=== PATIENT | male | born 1935 | race African-American/Black ===

== ENCOUNTER 2017-01-01 12:08 | Emergency (ER) | payer MEDICARE, MEDICAID ==
[~2017-01-01] VITALS: Ht 177.8 cm; Wt 78.0 kg
[~2017-01-01 12:08] MED LIST: AMLO5TAB4 PO; ASPI-1159 PO; CRANBERRY PO; DOCU-138 PO; FINA5TAB11 PO; GEMF600T3 PO; GLIP5TAB12 PO; HYDR-4134 PO; MULT-1146 PO; PANT40TA4 PO; PARO10TA87 PO
[2017-01-01 16:32] VITALS: BP 134/72
== END 2017-01-01 17:14 ==
LOC: ER 14:00
DX: S22.42XA Multiple fractures of ribs, left side, initial encounter for closed fracture (principal); J90 Pleural effusion, not elsewhere classified; F41.9 Anxiety disorder, unspecified; R51 Headache; E11.22 Type 2 diabetes mellitus with diabetic chronic kidney disease; I12.9 Hypertensive chronic kidney disease with stage 1 through stage 4 chronic kidney disease, or unspecified chronic kidney disease; N18.9 Chronic kidney disease, unspecified; J44.9 Chronic obstructive pulmonary disease, unspecified; J84.10 Pulmonary fibrosis, unspecified; Z95.0 Presence of cardiac pacemaker; Z87.828 Personal history of other (healed) physical injury and trauma; Z79.82 Long term (current) use of aspirin; W06.XXXA Fall from bed, initial encounter; Y93.89 Activity, other specified; Y92.013 Bedroom of single-family (private) house as the place of occurrence of the external cause
CPT/HCPCS: 70450; 71010; 71250; 99284

== ENCOUNTER 2017-08-14 12:53 | Emergency (ER) | payer MEDICARE, MEDICAID ==
[~2017-08-14] VITALS: Ht 175.3 cm; Wt 75.0 kg
[2017-08-14] MEDS ORDERED: ACETAMINOPHEN 500MG TABLET PO STA (14:01)
[2017-08-14] MEDS ORDERED: SODIUM CHLORIDE 0.9% 1,000 ML IV ONE (14:01)
[2017-08-14 14:36] LABS: BASOPHILS % 0.7 % (0.0-2.0); EOSINOPHILS % 1.4 % (0.0-5.0); HEMATOCRIT. 36.9 % (42.0-52.0); HEMOGLOBIN. 11.9 g/dL (14.0-18.0); LYMPHOCYTES % 18.9 % (20.0-50.0); MEAN CORPUSCULAR HEMOGLOBIN 21.7 pg (28.0-32.0); MEAN CORPUSCULAR VOLUME 67.2 fL (80.0-94.0); MEAN PLATELET VOLUME 8.9 fl (7.4-10.4); MONOCYTES % 7.9 % (2.0-8.0); NEUTROPHILS % 71.1 % (40.0-76.0); PLATELET 178 x1000/uL (130-400); RED BLOOD CELL COUNT 5.49 mill/uL (4.7-6.1); RED CELL DISTRIBUTION WIDTH 16.4 % (11.6-14.6)
[2017-08-14 15:24] LABS: PLATELET ESTIMATE NORMAL
[2017-08-14 15:55] LABS: PROTHROMBIN TIME 10.5 sec (9.4-11.6)
[2017-08-14 17:02] VITALS: BP 173/81
== END 2017-08-14 18:07 | disposition home or self-care (01) ==
LOC: ER 13:14
DX: S09.90XA Unspecified injury of head, initial encounter (principal); W01.0XXA Fall on same level from slipping, tripping and stumbling without subsequent striking against object, initial encounter; Y93.E1 Activity, personal bathing and showering; F41.9 Anxiety disorder, unspecified; E11.22 Type 2 diabetes mellitus with diabetic chronic kidney disease; R51 Headache; I12.9 Hypertensive chronic kidney disease with stage 1 through stage 4 chronic kidney disease, or unspecified chronic kidney disease; N18.9 Chronic kidney disease, unspecified; Z95.0 Presence of cardiac pacemaker; Z79.02 Long term (current) use of antithrombotics/antiplatelets; Z79.82 Long term (current) use of aspirin; Z79.84 Long term (current) use of oral hypoglycemic drugs
CPT/HCPCS: 36415; 70450; 80048; 85025; 85610; 85730; 86850; 86900; 86901; 93005; 96360; 96361; 99285; J7030

== ENCOUNTER 2019-11-02 12:24 | Inpatient (IN) | payer MEDICARE, MEDICAID ==
[~2019-11-02] VITALS: Ht 182.9 cm; Wt 73.5 kg
[~2019-11-02 12:24] MED LIST changes: -ASPI-1159 PO; +ASPI-1497 PO; +CLOP75TA33 PO; -GEMF600T3 PO; +GEMF600T5 PO; +HYDR-4135 PO; +INSU100I19 SQ; +ISOS20TA8 PO; +MEMA5TAB42 PO; +METO-396 PO; +NIFE-32 PO; +OMEP40CA12 MT
[2019-11-02] MEDS ORDERED: ONDANSETRON HCL 4MG/2ML INJ IV STA (12:54)
[2019-11-02] MEDS ORDERED: MORPHINE SULFATE 4 MG/ML CPJ (NOT FOR IM USE) IV STA (12:54)
[2019-11-02 13:34] LABS: BASOPHILS % 0.4 % (0.0-2.0); EOSINOPHILS % 0.3 % (0.0-5.0); HEMOGLOBIN. 12.8 g/dL (14.0-18.0); MEAN CORPUSCULAR HEMOGLOBIN 21.1 pg (28.0-32.0); MEAN CORPUSCULAR VOLUME 67.5 fL (80.0-94.0); MEAN PLATELET VOLUME 9.6 fl (7.4-10.4); NEUTROPHILS % 74.3 % (40.0-76.0); PLATELET 251 x1000/uL (130-400); RED BLOOD CELL COUNT 6.07 mill/uL (4.7-6.1); RED CELL DISTRIBUTION WIDTH 18.5 % (11.6-14.6)
[2019-11-02 13:40] LABS: CHLORIDE 103 mEq/L (98-107)
[2019-11-02 13:43] LABS: PROTHROMBIN TIME 10.5 sec (9.6-11.0)
[2019-11-02 14:11] LABS: PLATELET ESTIMATE NORMAL
[2019-11-02] MEDS ORDERED: PANTOPRAZOLE SODIUM 40 MG/VIAL IV ONE (15:30)
[2019-11-02] MEDS ORDERED: SODIUM CHLORIDE 0.9% 250 ML IV ONE (15:45)
[2019-11-02] MEDS ORDERED: CLONIDINE 0.1MG TABLET PO PRN (15:45)
[2019-11-02] MEDS ORDERED: INSULIN REGULAR (HUMULIN R) 300UNITS/3ML SUBCUT ONE (15:45)
[2019-11-02] MEDS ORDERED: ONDANSETRON HCL 4MG/2ML INJ IV PRN (15:45)
[2019-11-02] MEDS ORDERED: CEFTRIAXONE 1 G PREMIX 50 ML IV SCH (16:00)
[2019-11-02] MEDS: PANTOPRAZOLE SODIUM 40 MG/VIAL IV SCH (16:00)
[2019-11-02] MEDS: SODIUM CHLORIDE 0.9% 1,000 ML IV SCH ×2 (16:01→22:27)
[2019-11-02 16:39] LABS: TOTAL IRON BINDING CAPACITY 286 ug/dL (250-450)
[2019-11-02 19:09] LABS: CLARITY URINE CLEAR (CLEAR); COLOR URINE YELLOW (YELLOW); KETONES URINE NEGATIVE (NEGATIVE); LEUKOCYTE ESTERASE URINE TRACE (NEGATIVE); NITRITE URINE NEGATIVE (NEGATIVE); OCCULT BLOOD URINE NEGATIVE (NEGATIVE); PH URINE 6.5 (4.5-8.0); PROTEIN URINE 2+ (NEGATIVE); SPECIFIC GRAVITY URINE 1.023 (1.005-1.030)
[2019-11-02 21:45] VITALS: BP 138/79
[2019-11-02 22:00] VITALS: BP 138/79
[2019-11-02] MEDS: INSULIN GLARGINE UD 100 UNITS/ML SYR SUBCUT SCH (22:00)
[2019-11-02] MEDS ORDERED: DEXTROSE 50% WATER 50ML SYRINGE IV PRN (22:15)
[2019-11-02] MEDS: MEMANTINE HCL 5MG TABLET PEG SCH (22:26)
[2019-11-02] MEDS: METOPROLOL TARTRATE 25MG TABLET PEG SCH (22:38)
[2019-11-02 23:18] LABS: HEMATOCRIT 39.2 % (42.0-52.0); HEMOGLOBIN 11.9 g/dL (14.0-18.0); MEAN CORPUSCULAR HEMOGLOBIN 20.8 pg (28.0-32.0); MEAN CORPUSCULAR VOLUME 68.1 fL (80.0-94.0); PLATELET 225 x1000/uL (130-400); RED BLOOD CELL COUNT 5.75 mill/uL (4.7-6.1); RED CELL DISTRIBUTION WIDTH 18.3 % (11.6-14.6)
[2019-11-03] VITALS: BP_SYST 130; BP_SYST 136; BP_DIAS 67; BP_DIAS 75
[2019-11-03] MEDS ORDERED: DOCU-138 GT (00:21)
[2019-11-03] MEDS ORDERED: AMLO10TA80 GT (00:21)
[2019-11-03] MEDS ORDERED: HYDR-4135 GT (00:21)
[2019-11-03] MEDS ORDERED: METO-293 GT (00:21)
[2019-11-03] MEDS ORDERED: IPRA3AMP31 NEB (00:21)
[2019-11-03] MEDS ORDERED: INSU100I28 SQ (00:21)
[2019-11-03] MEDS ORDERED: TOPUD GT (00:21)
[2019-11-03 04:00] VITALS: BP 126/66
[2019-11-03 06:55] LABS: BASOPHILS % 0.8 % (0.0-2.0); EOSINOPHILS % 4.4 % (0.0-5.0); HEMATOCRIT. 38.1 % (42.0-52.0); HEMOGLOBIN. 11.6 g/dL (14.0-18.0); LYMPHOCYTES % 23.8 % (20.0-50.0); MEAN CORPUSCULAR HEMOGLOBIN 20.6 pg (28.0-32.0); MEAN CORPUSCULAR VOLUME 67.7 fL (80.0-94.0); PLATELET 214 x1000/uL (130-400); RED BLOOD CELL COUNT 5.63 mill/uL (4.7-6.1)
[2019-11-03] MEDS: INSULIN LISPRO 100 UNITS/ML SUBCUT SCH ×4 (07:35→21:00)
[2019-11-03] MEDS: BLOOD SUGAR DIAGNOSTIC STRIP TEST SCH ×4 (07:35→21:00)
[2019-11-03 08:00] VITALS: BP 127/61
[2019-11-03] MEDS: AMLODIPINE 5MG TABLET PEG SCH (10:02)
[2019-11-03] MEDS: PANTOPRAZOLE SODIUM 40 MG/VIAL IV SCH ×3 (10:02→22:06)
[2019-11-03] MEDS: CEFTRIAXONE 1,000 MG in DEXTROSE 5% WATER 50 ML IV SCH (10:02)
[2019-11-03] MEDS: FINASTERIDE 5MG TABLET PEG SCH (10:02)
[2019-11-03] MEDS: METOPROLOL TARTRATE 25MG TABLET PEG SCH ×2 (10:03→22:05)
[2019-11-03] MEDS ORDERED: NA PHOS,M-B/NA PHOS,DI-BA ENEMA 118ML PR PRN (11:00)
[2019-11-03] MEDS ORDERED: SORBITOL 70% SOLN 30ML GT NR (11:00)
[2019-11-03] MEDS: SUCRALFATE 1 G/10 ML UDC GT SCH ×2 (11:12→17:52)
[2019-11-03 12:00] VITALS: BP 141/62
[2019-11-03 16:00] VITALS: BP 141/87
[2019-11-03 20:00] VITALS: BP 106/76
[2019-11-03] MEDS: MEMANTINE HCL 5MG TABLET PEG SCH (22:05)
[2019-11-03] MEDS: INSULIN GLARGINE UD 100 UNITS/ML SYR SUBCUT SCH (22:08)
[2019-11-04] MEDS: SUCRALFATE 1 G/10 ML UDC GT SCH ×5 (00:38→23:08)
[2019-11-04] MEDS: SODIUM CHLORIDE 0.9% 1,000 ML IV SCH ×3 (01:01→23:04)
[2019-11-04 04:00] VITALS: BP 147/69
[2019-11-04] MEDS: BLOOD SUGAR DIAGNOSTIC STRIP TEST SCH ×4 (07:15→21:32)
[2019-11-04] MEDS: INSULIN LISPRO 100 UNITS/ML SUBCUT SCH ×4 (07:50→21:00)
[2019-11-04 08:00] VITALS: BP 153/68
[2019-11-04] MEDS: ACETAMINOPHEN 650MG/20.3ML UDC GT PRN (08:58)
[2019-11-04] MEDS: METOPROLOL TARTRATE 25MG TABLET PEG SCH ×2 (08:59→21:31)
[2019-11-04] MEDS: CEFTRIAXONE 1,000 MG in DEXTROSE 5% WATER 50 ML IV SCH (08:59)
[2019-11-04] MEDS: FINASTERIDE 5MG TABLET PEG SCH (08:59)
[2019-11-04] MEDS: AMLODIPINE 5MG TABLET PEG SCH (08:59)
[2019-11-04] MEDS: PANTOPRAZOLE SODIUM 40 MG/VIAL IV SCH ×2 (08:59→21:31)
[2019-11-04 12:00] VITALS: BP 140/80
[2019-11-04 15:42] LABS: BASOPHILS % 1.1 % (0.0-2.0); EOSINOPHILS % 6.1 % (0.0-5.0); HEMATOCRIT. 35.4 % (42.0-52.0); HEMOGLOBIN. 10.8 g/dL (14.0-18.0); LYMPHOCYTES % 27.5 % (20.0-50.0); MEAN CORPUSCULAR HEMOGLOBIN 20.5 pg (28.0-32.0); MEAN CORPUSCULAR VOLUME 67.5 fL (80.0-94.0); MONOCYTES % 10.4 % (2.0-8.0); NEUTROPHILS % 54.9 % (40.0-76.0); PLATELET 234 x1000/uL (130-400); RED BLOOD CELL COUNT 5.25 mill/uL (4.7-6.1); RED CELL DISTRIBUTION WIDTH 18.1 % (11.6-14.6)
[2019-11-04 16:00] VITALS: BP 141/87
[2019-11-04 16:16] LABS: PLATELET ESTIMATE NORMAL
[2019-11-04 20:59] VITALS: BP 173/79
[2019-11-04] MEDS: MEMANTINE HCL 5MG TABLET PEG SCH (21:31)
[2019-11-04] MEDS: INSULIN GLARGINE UD 100 UNITS/ML SYR SUBCUT SCH (23:30)
[2019-11-05] MEDS: SUCRALFATE 1 G/10 ML UDC GT SCH ×3 (05:18→18:06)
[2019-11-05] MEDS: BLOOD SUGAR DIAGNOSTIC STRIP TEST SCH ×4 (06:41→21:25)
[2019-11-05] MEDS: INSULIN LISPRO 100 UNITS/ML SUBCUT SCH ×4 (06:41→21:00)
[2019-11-05 08:00] VITALS: BP 158/68
[2019-11-05] MEDS: CEFTRIAXONE 1,000 MG in DEXTROSE 5% WATER 50 ML IV SCH (10:05)
[2019-11-05] MEDS: PANTOPRAZOLE SODIUM 40 MG/VIAL IV SCH ×2 (10:05→21:00)
[2019-11-05] MEDS: FINASTERIDE 5MG TABLET PEG SCH (10:06)
[2019-11-05] MEDS: ACETAMINOPHEN 650MG/20.3ML UDC GT PRN (10:06)
[2019-11-05] MEDS: METOPROLOL TARTRATE 25MG TABLET PEG SCH ×2 (10:06→21:26)
[2019-11-05] MEDS: AMLODIPINE 5MG TABLET PEG SCH (10:06)
[2019-11-05 12:00] VITALS: BP 159/69
[2019-11-05 12:34] LABS: EOSINOPHILS % 2.7 % (0.0-5.0); HEMATOCRIT. 34.8 % (42.0-52.0); HEMOGLOBIN. 10.9 g/dL (14.0-18.0); LYMPHOCYTES % 15.6 % (20.0-50.0); MEAN CORPUSCULAR HEMOGLOBIN 21.1 pg (28.0-32.0); MEAN CORPUSCULAR VOLUME 67.3 fL (80.0-94.0); MEAN PLATELET VOLUME 9.2 fl (7.4-10.4); MONOCYTES % 9.1 % (2.0-8.0); NEUTROPHILS % 71.6 % (40.0-76.0); PLATELET 241 x1000/uL (130-400); RED BLOOD CELL COUNT 5.17 mill/uL (4.7-6.1)
[2019-11-05 12:42] LABS: CHLORIDE 111 mEq/L (98-107)
[2019-11-05 20:00] VITALS: BP 143/69
[2019-11-05 20:09] VITALS: BP 143/69
[2019-11-05] MEDS: MEMANTINE HCL 5MG TABLET PEG SCH (21:25)
[2019-11-05] MEDS: INSULIN GLARGINE UD 100 UNITS/ML SYR SUBCUT SCH (21:36)
== END 2019-11-05 22:17 | DRG 378 ==
LOC: ER 12:24 → 7WST 15:41 → EDBEDREQ 15:50 → EDBEDREQTM 15:50 → ENRESERV 16:58 → CANRESERV 16:58 → ENRESERV 19:37 → 6WST 21:43
PROVIDERS: ADMIT Internal Medicine Nephrology; ATTEND Internal Medicine Nephrology
DX: K26.4 Chronic or unspecified duodenal ulcer with hemorrhage (principal); E46 Unspecified protein-calorie malnutrition; E87.1 Hypo-osmolality and hyponatremia; N17.9 Acute kidney failure, unspecified; K29.81 Duodenitis with bleeding; K29.71 Gastritis, unspecified, with bleeding; E11.22 Type 2 diabetes mellitus with diabetic chronic kidney disease; R13.12 Dysphagia, oropharyngeal phase; K56.41 Fecal impaction; D72.829 Elevated white blood cell count, unspecified; D50.9 Iron deficiency anemia, unspecified; E11.65 Type 2 diabetes mellitus with hyperglycemia; F03.90 Unspecified dementia, unspecified severity, without behavioral disturbance, psychotic disturbance, mood disturbance, and anxiety; K57.90 Diverticulosis of intestine, part unspecified, without perforation or abscess without bleeding; I49.5 Sick sinus syndrome; R79.89 Other specified abnormal findings of blood chemistry; N40.0 Benign prostatic hyperplasia without lower urinary tract symptoms; N32.89 Other specified disorders of bladder; K62.89 Other specified diseases of anus and rectum; N18.9 Chronic kidney disease, unspecified; Z93.1 Gastrostomy status; Z03.818 Encounter for observation for suspected exposure to other biological agents ruled out; Z95.0 Presence of cardiac pacemaker; Z68.22 Body mass index [BMI] 22.0-22.9, adult
CPT/HCPCS: 36415; 71045; 74176; 80048; 80053; 81003; 82270; 82728; 82962; 83036; 83540; 83550; 83605; 83880; 84484; 85025; 85027; 86850; 86900; 92610; 93005; 96374; 99285; C9113; J0696; J1815; J2270; J2405; J7050; J7060; C9803-CS; U0003-CS

== ENCOUNTER 2021-10-08 23:15 | Inpatient (IN) | payer MEDICARE, MEDICAID ==
[~2021-10-08] VITALS: Ht 162.6 cm; Wt 69.0 kg
[~2021-10-08 23:15] MED LIST changes: +AMLO10TA80 GT; -AMLO5TAB4 PO; -ASPI-1497 PO; +CHOL400D7 PO; -CLOP75TA33 PO; -CRANBERRY PO; +CYAN500T47 PO; +DOCU-138 GT; -DOCU-138 PO; -FINA5TAB11 PO; -GEMF600T5 PO; -GLIP5TAB12 PO; -HYDR-4134 PO; +HYDR-4135 GT; -HYDR-4135 PO; -INSU100I19 SQ; +INSU100I28 SQ; -ISOS20TA8 PO; -MEMA5TAB42 PO; -METO-396 PO; +METO100T16 PO; -MULT-1146 PO; +NETA2.5D EACHEYE; -NIFE-32 PO; -OMEP40CA12 MT; -PANT40TA4 PO; -PARO10TA87 PO; +PRAV20TA57 PO; +SITA25TA3 PO; +XALAO EACHEYE
[2021-10-09 06:22] LABS: HEMATOCRIT. 39.6 % (42.0-52.0); HEMOGLOBIN. 12.1 g/dL (14.0-18.0); MEAN CORPUSCULAR VOLUME 65.3 fL (80.0-94.0); RED BLOOD CELL COUNT 6.06 mill/uL (4.7-6.1); RED CELL DISTRIBUTION WIDTH 21.8 % (11.6-14.6)
[2021-10-09 06:25] LABS: CHLORIDE 107 mEq/L (98-107)
[2021-10-09 06:50] LABS: INR 1.3; PROTHROMBIN TIME 13.3 sec (9.6-11.0)
[2021-10-09 07:12] LABS: PLATELET 153 x1000/uL (130-400); PLATELET ESTIMATE NORMAL
[2021-10-09 07:13] LABS: MEAN PLATELET VOLUME 9.5 fl (7.4-10.4)
[2021-10-09 07:51] LABS: CLARITY URINE CLEAR (CLEAR); COLOR URINE YELLOW (YELLOW); KETONES URINE TRACE (NEGATIVE); LEUKOCYTE ESTERASE URINE NEGATIVE (NEGATIVE); NITRITE URINE NEGATIVE (NEGATIVE); OCCULT BLOOD URINE NEGATIVE (NEGATIVE); PROTEIN URINE 2+ (NEGATIVE); SPECIFIC GRAVITY URINE 1.019 (1.005-1.030); UROBILINOGEN URINE 0.2 E.U./dL (0.2-1.0)
[2021-10-09] MEDS ORDERED: ONDANSETRON HCL 4MG/2ML INJ IV PRN (08:45)
[2021-10-09] MEDS ORDERED: CEFTRIAXONE 1 G PREMIX 50 ML IV SCH (09:00)
[2021-10-09] MEDS: SODIUM CHLORIDE 0.45% 1,000 ML IV SCH ×2 (09:00→22:10)
[2021-10-09] MEDS: PANTOPRAZOLE SODIUM 40 MG/VIAL IV SCH (09:35)
[2021-10-09] MEDS ORDERED: IPRATROPIUM/ALBUTEROL 0.5-3(2.5)MG/3ML NEB HHN PRN (14:45)
[2021-10-09] MEDS ORDERED: AZITHROMYCIN 500MG/250ML 250 ML IV NR (15:00)
[2021-10-09] MEDS ORDERED: AZITHROMYCIN 500 MG in DEXT 5% WATER 250 ML IV SCH (16:00)
[2021-10-09 16:26] VITALS: BP 128/68
[2021-10-09 16:30] VITALS: BP 134/75
[2021-10-09] MEDS ORDERED: BLOOD SUGAR DIAGNOSTIC STRIP TEST SCH (19:30)
[2021-10-09 20:00] VITALS: BP 90/50
[2021-10-09] MEDS: BLOOD SUGAR DIAGNOSTIC STRIP TEST SCH (22:00)
[2021-10-10] VITALS: BP 131/63
[2021-10-10 04:00] VITALS: BP 126/60
[2021-10-10] MEDS: BLOOD SUGAR DIAGNOSTIC STRIP TEST SCH (06:00)
[2021-10-10] MEDS ORDERED: ATROPINE SULFATE 1MG/10ML SYR ONE (08:17)
[2021-10-10] MEDS ORDERED: SODIUM BICARBONATE 8.4% 1 MEQ/ML 50ML SYR IV ONE (08:17)
[2021-10-10] MEDS ORDERED: EPINEPHRINE 0.1MG/ML (1:10,000) 10ML SYR ONE (08:17)
[2021-10-10] MEDS ORDERED: AMIODARONE HCL 50MG/ML 3ML VIAL IV ONE (08:17)
[2021-10-10] MEDS ORDERED: MAGNESIUM SULFATE 4G IN WATER 100ML PREMIX IV ONE (08:17)
[2021-10-10] MEDS ORDERED: CALCIUM CHLORIDE 1GM/10ML SYR IV ONE (08:17)
[2021-10-10] MEDS ORDERED: BLOOD SUGAR DIAGNOSTIC STRIP TEST SCH (09:00)
[2021-10-10] MEDS ORDERED: CEFTRIAXONE 1,000 MG in DEXTROSE 5% WATER 50 ML IV SCH (09:00)
[2021-10-10] MEDS ORDERED: PNEUMOCOCCAL 23-VAL P-SAC VAC 0.5 ML IM ONE (09:00)
[2021-10-10 09:28] LABS: CHLORIDE 105 mEq/L (98-107)
[2021-10-10 09:39] LABS: BASOPHILS % 0.1 % (0.0-2.0); HEMATOCRIT. 40.2 % (42.0-52.0); HEMOGLOBIN. 11.6 g/dL (14.0-18.0); LYMPHOCYTES % 11.6 % (20.0-50.0); MEAN CORPUSCULAR HEMOGLOBIN 19.7 pg (28.0-32.0); MEAN CORPUSCULAR VOLUME 68.3 fL (80.0-94.0); MEAN PLATELET VOLUME 10.6 fl (7.4-10.4); NEUTROPHILS % 77.3 % (40.0-76.0); PLATELET 151 x1000/uL (130-400); RED BLOOD CELL COUNT 5.89 mill/uL (4.7-6.1); RED CELL DISTRIBUTION WIDTH 23.2 % (11.6-14.6)
[2021-10-10 09:46] LABS: HDL CHOLESTEROL 48 mg/dL (40-59); LDL CHOLESTEROL 56 mg/dL (5-100); TOTAL IRON BINDING CAPACITY 410 ug/dL (250-450)
[2021-10-10 09:57] LABS: PHOSPHORUS > 9.0 mg/dL (2.5-4.9)
[2021-10-10 10:06] LABS: FOLIC ACID (FOLATE) SERUM >20 ng/mL ng/mL (>5.38); VITAMIN B12 SERUM >2000 pg/mL pg/mL (211-911)
[2021-10-10] MEDS: PANTOPRAZOLE SODIUM 40 MG/VIAL IV SCH (11:53)
[2021-10-10 12:00] VITALS: BP 98/58
[2021-10-10] MEDS: SODIUM CHLORIDE 0.45% 1,000 ML IV SCH ×2 (12:13→12:14)
[2021-10-10 13:00] LABS: FERRITIN 134 ng/mL (22-322)
[2021-10-10] MEDS ORDERED: AZITHROMYCIN 500 MG in DEXT 5% WATER 250 ML IV SCH (13:00)
[2021-10-10] MEDS ORDERED: TOTAL PARENTERAL NUTRITION 1,400 ML IV SCH (21:00)
[2021-10-10] MEDS ORDERED: FAT EMULSIONS 500 ML IV SCH (21:00)
[2021-10-12] MEDS ORDERED: PHYTONADIONE 10MG/ML AMP SUBCUT SCH (09:00)
== END 2021-10-10 17:10 | DRG 393 ==
LOC: ER 23:15 → MICUSO 10-09 04:56 → 4WST 10-09 15:14 → 7WST 10-09 16:51
PROVIDERS: ADMIT Internal Medicine; ATTEND Internal Medicine
PROC: 5A12012 Performance of Cardiac Output, Single, Manual (ICD-10-PCS; principal; 2021-10-10)
PROC: 02HV33Z Insertion of Infusion Device into Superior Vena Cava, Percutaneous Approach (ICD-10-PCS; 2021-10-10)
PROC: B5181ZA Fluoroscopy of Superior Vena Cava using Low Osmolar Contrast, Guidance (ICD-10-PCS; 2021-10-10)
PROC: B548ZZA Ultrasonography of Superior Vena Cava, Guidance (ICD-10-PCS; 2021-10-10)
DX: K94.23 Gastrostomy malfunction (principal); J18.9 Pneumonia, unspecified organism; J96.01 Acute respiratory failure with hypoxia; E44.1 Mild protein-calorie malnutrition; N17.9 Acute kidney failure, unspecified; L03.311 Cellulitis of abdominal wall; K29.70 Gastritis, unspecified, without bleeding; Z20.822 Contact with and (suspected) exposure to COVID-19; K44.9 Diaphragmatic hernia without obstruction or gangrene; R13.12 Dysphagia, oropharyngeal phase; K29.80 Duodenitis without bleeding; K94.22 Gastrostomy infection; D64.9 Anemia, unspecified; Z68.26 Body mass index [BMI] 26.0-26.9, adult; I12.9 Hypertensive chronic kidney disease with stage 1 through stage 4 chronic kidney disease, or unspecified chronic kidney disease; E11.22 Type 2 diabetes mellitus with diabetic chronic kidney disease; N18.9 Chronic kidney disease, unspecified; E78.5 Hyperlipidemia, unspecified; I25.10 Atherosclerotic heart disease of native coronary artery without angina pectoris; F32.A Depression, unspecified; Z79.899 Other long term (current) drug therapy; Z95.0 Presence of cardiac pacemaker
CPT/HCPCS: 36415; 36573; 71045; 74176; 76700; 80053; 80061; 81003; 82607; 82728; 82746; 82962; 83540; 83550; 83735; 84100; 84134; 85025; 87426; 99285; C1725; C9113; J0282; J0456; J0461; J0696; J3475; J3490; J7060